=== PATIENT | male | born 1960 | race Caucasian/White ===

== ENCOUNTER → 2021-07-19 | Outpatient (CLI) | payer BC | LOC: SLEEP 15:14 | DX: G47.33 Obstructive sleep apnea (adult) (pediatric) (principal) | CPT/HCPCS: 95811 ==

== ENCOUNTER 2021-10-11 08:09 | Emergency (ER) | payer SELFPAY ==
[2021-10-11 08:42] LABS: HEMOGLOBIN 14.4 gm/dl (14.0-17.5); RED BLOOD COUNT 4.89 M/UL (4.20-5.50); WHITE BLOOD COUNT 10.1 K/UL (4.5-11.0)
[2021-10-11 09:19] LABS: BUN/CREATININE RATIO 20 (0-10)
[2021-10-11] MEDS ORDERED: PERCOCET 5/325 T1 EA PO (10:24)
== END 2021-10-11 11:08 | disposition home or self-care (01) ==
LOC: ER1 08:09
PROVIDERS: Family Medicine
DX: S92.001A Unspecified fracture of right calcaneus, initial encounter for closed fracture (principal); I10 Essential (primary) hypertension; W19.XXXA Unspecified fall, initial encounter
CPT/HCPCS: 71045; 72131; 73590; 73610; 73650; 80053; 85025; 99284